=== PATIENT | male | born 1950 | race Two or more races ===

== ENCOUNTER 2019-02-03 12:50 | Inpatient (IN) | payer OTHER ==
[2019-02-03] MEDS ORDERED: ACETAMINOPHEN 1000 MG/100 ML VIAL (NON FORMULARY) IVPB ONE (13:49)
[2019-02-03] MEDS ORDERED: CLINDAMYCIN 600MG PREMIX IVPB 600 MG/50 ML BAG IVPB ONE ×2 (13:49→14:13)
--- NOTE | 2019-02-03 13:50 | PDOC ---
History of Present Illness <Gonzalez Stout - Last Filed: 02/03/19 15:36> - General History Source: Patient - History of Present Illness Occurred: reports: other Severity: Yes: severe Lower Extremity Pain Location: right: other (RLE leg/ankle) Method of Injury: Yes: fell <Adalgisa LathamHungLinette - Last Filed: 02/03/19 17:36> - General Chief Complaint: Edema Stated Complaint: RT LEG RASH Time Seen by Provider: 02/03/19 13:14 Past History <Gonzalez Stout - Last Filed: 02/03/19 15:36> - Past Medical History COPD: No Diabetes: Yes HTN: Yes - Psycho Social/Smoking Cessation Hx Smoking History: Never smoked Hx Alcohol Use: No Drug/Substance Use Hx: No <Adalgisa LathamHungLinette - Last Filed: 02/03/19 17:36> - Past Medical History Allergies/Adverse Reactions: Allergies Allergy/AdvReac Type Severity Reaction Status Date / Time No Known Allergies Allergy Verified 02/03/19 13:19 Home Medications: Ambulatory Orders Allopurinol [Zyloprim -] 100 mg PO DAILY 02/03/19 Aspirin [Aspirin EC] 81 mg PO DAILY 02/03/19 Atorvastatin Ca [Lipitor] 20 mg PO HS 02/03/19 Carvedilol 25 mg PO BID 02/03/19 Chlorthalidone 25 mg PO DAILY 02/03/19 Hydralazine HCl 50 mg PO TID 02/03/19 Insulin (Levemir) [Levemir Vial] 55 unit SQ DAILY 02/03/19 Losartan Potassium 100 mg PO DAILY 02/03/19 Review of Systems - Review of Systems Constitutional: No: Chills, Fever, Malaise, Weakness Respiratory: No: Cough, Shortness of Breath, Hemoptysis Cardiac (ROS): No: Chest Pain, Lightheadedness, Palpitations Integumentary: Yes: Erythema <Adalgisa LathamHungLinette - Last Filed: 02/03/19 17:36> *Physical Exam - Vital Signs Last Vital Signs Temp Pulse Resp BP Pulse Ox 97.8 F 65 16 130/53 L 95 02/03/19 13:15 02/03/19 13:15 02/03/19 13:15 02/03/19 13:15 02/03/19 13:15 <Gonzalez Stout - Last Filed: 02/03/19 15:36> - Vital Signs Last Vital Signs Temp Pulse Resp BP Pulse Ox 97.8 F 65 16 130/53 L 95 02/03/19 13:15 02/03/19 13:15 02/03/19 13:15 02/03/19 13:15 02/03/19 13:15 - Physical Exam General Appearance: Yes: Appropriately Dressed. No: Apparent Distress HEENT: positive: Normal Voice Neck: positive: Supple Respiratory/Chest: positive: Lungs Clear, Normal Breath Sounds. negative: Respiratory Distress Cardiovascular: positive: Regular Rate, S1, S2 Integumentary: positive: Dry, Warm, Other (diffuse edema w/ extensive erythema and increased warmth to RLE, superficial abrasion to anterior knee w/ limited erythema, unable to palpate pulses 2/2 swelling) Neurologic: positive: Fully Oriented, Alert, Normal Mood/Affect <Teetee Latham - Last Filed: 02/03/19 17:36> Heart Score/ECG Review #1 ECG reviewed & interpreted by me at: 14:46 General ECG Interpretation: Sinus Rhythm, Normal Rate (64), Normal Intervals ( qtc 476), No acute ischemic changes <Gonzalez Stout - Last Filed: 02/03/19 15:36> ED Treatment Course - LABORATORY CBC & Chemistry Diagram: 02/03/19 14:05 02/03/19 13:55 - ADDITIONAL ORDERS Additional order review: Laboratory Results 02/03/19 13:55 Sodium 139 Potassium 4.4 Chloride 108 H Carbon Dioxide 25 Anion Gap 6 L BUN 34.9 H Creatinine 1.9 H Est GFR (CKD-EPI)AfAm 41.65 Est GFR (CKD-EPI)NonAf 35.94 Random Glucose 331 H Calcium 8.4 L Total Bilirubin 0.6 AST 49 H ALT 21 Alkaline Phosphatase 86 Total Protein 6.2 L Albumin 3.0 L 02/03/19 14:05 RBC 3.97 L MCV 91.6 MCHC 32.8 RDW 14.6 MPV 10.2 Neutrophils % 68.5 Lymphocytes % 20.6 Monocytes % 7.2 Eosinophils % 2.9 Basophils % 0.8 - Medications Given in the ED: ED Medications Discontinued Medications Generic Name Dose Route Start Last Admin Trade Name Freq PRN Reason Stop Dose Admin Acetaminophen 1,000 mg 02/03/19 13:49 02/03/19 14:32 Ofirmev Injection - IVPB 02/03/19 13:50 1,000 mg ONCE ONE Administration Clindamycin Phosphate 600 mg in 50 mls @ 100 mls/hr 02/03/19 13:49 02/03/19 14:32 Cleocin 600 Mg Premix Ivpb - IVPB 02/03/19 14:18 100 mls/hr ONCE ONE Administration <Gonzalez Stout - Last Filed: 02/03/19 15:36> - LABORATORY CBC & Chemistry Diagram: 02/03/19 14:05 02/03/19 13:55 <Teetee Latham - Last Filed: 02/03/19 17:36> Medical Decision Making - Medical Decision Making 02/03/19 14:01 68-year-old male, history of hypertension and insulin-dependent diabetic here with right lower leg pain swelling and redness x 3 days. Patient states he fell onto right knee 1 week ago during which he sustained an abrasion and has been applying bacitracin. Denies any fever or chills. FS 98 this am. HA1c 8 per pt See exam Extensive RLE cellulitis, m/l 2/2 abrasion during knee injury last week No systemic s/s -pain control -IV abx -labs -XR -US though very low suspicion for DVT -admit 02/03/19 15:55 Labs remarkable for creatinine of 1.9, no old to compare. Patient states he was told in the past that his kidney tests were a little elevated but does not know numbers. Blood glucose 331 with no gap. IV fluids, abx and US in progress. XR neg for fx. Pending admission <Teetee Latham - Last Filed: 02/03/19 17:36> Discharge <Gonzalez Stout - Last Filed: 02/03/19 15:36> - Discharge Information Problems reviewed: Yes - Admission Yes <Teetee Latham - Last Filed: 02/03/19 17:36> - Discharge Information Clinical Impression/Diagnosis: Cellulitis of right leg, Hyperglycemia Condition: Fair - Follow up/Referral Referrals: Zafar Eckert MD [Primary Care Provider] -
[2019-02-03] MEDS ORDERED: ACETAMINOPHEN INJECTION 100 ML IVPB ONE (14:15)
[2019-02-03 14:28] LABS: BASO % 0.8 % (0-2.0); EOS % 2.9 % (0-4.5); HEMATOCRIT 36.4 % (35.4-49); HEMOGLOBIN 11.9 GM/dL (11.7-16.9); LYMPH % 20.6 % (8-40); MCH 30.1 pg (25.7-33.7); MCHC 32.8 g/dl (32.0-35.9); MEAN CELL VOLUME 91.6 fl (80-96); MEAN PLT VOLUME 10.2 fl (7.5-11.1); MONO % 7.2 % (3.8-10.2); NEUT % 68.5 % (42.8-82.8); PLATELET COUNT 152 K/MM3 (134-434); RBC 3.97 M/mm3 (4.00-5.60); RDW 14.6 % (11.9-15.9); WHITE BLOOD COUNT 6.7 K/mm3 (4.0-10.0)
[2019-02-03 14:52] LABS: BILIRUBIN,TOTAL 0.6 mg/dL (0.2-1); BLOOD UREA NITROGEN 34.9 mg/dL (7-18); CALCIUM 8.4 mg/dL (8.5-10.1); CREATININE 1.9 mg/dL (0.55-1.3); POTASSIUM 4.4 mmol/L (3.5-5.1); TOT PROT 6.2 g/dl (6.4-8.2)
[2019-02-03 15:18] LABS: PLATELET ESTIMATE DECREASED
[2019-02-03] MEDS ORDERED: SODIUM CHLORIDE 1,000 ML IV STA (15:54)
--- NOTE | 2019-02-03 16:41 | HP ---
<Yifan Figueroa - Last Filed: 02/03/19 19:32> CHIEF COMPLAINT: Right knee pain/swelling PCP: Dr Eckert HISTORY OF PRESENT ILLNESS: Pt is a 68 y/o M with a significant past medical history of IDDM, HTN, CKD, who presented to [facility] due to right knee swelling and pain. Pt endorses that 1 week ago, he fell on his right knee. Shortly after the injury, pt noticed swelling and erythema around the area. Yesterday, pt said the redness traveled down from his knee to his soria. Pt has applied topic bacitracin to the area with little relief. Pt does endorse he is an insulin dependent diabetic. Denies any fever, chills, nausea, vomiting, chest pain, or shortness of breath PMH as above SocialHx- Denies T/A/D SurgHx- Cataract surgery FH- Mother DM ER course was notable for: (1) Venous Duplex Negative (2) Received Clindamycin Allergies No Known Allergies Allergy (Verified 02/03/19 13:19) HOME MEDICATIONS: Home Medications Medication Instructions Recorded Allopurinol [Zyloprim -] 100 mg PO DAILY 02/03/19 Aspirin [Aspirin EC] 81 mg PO DAILY 02/03/19 Atorvastatin Ca [Lipitor] 20 mg PO HS 02/03/19 Carvedilol 25 mg PO BID 02/03/19 Chlorthalidone 25 mg PO DAILY 02/03/19 Hydralazine HCl 50 mg PO TID 02/03/19 Insulin (Levemir) [Levemir Vial] 55 unit SQ DAILY 02/03/19 Losartan Potassium 100 mg PO DAILY 02/03/19 REVIEW OF SYSTEMS CONSTITUTIONAL: Absent: fever, chills, diaphoresis, generalized weakness, malaise, loss of appetite, weight change HEENT: Absent: rhinorrhea, nasal congestion, throat pain, throat swelling, difficulty swallowing, mouth swelling, ear pain, eye pain, visual changes CARDIOVASCULAR: Absent: chest pain, syncope, palpitations, irregular heart rate, lightheadedness , peripheral edema RESPIRATORY: Absent: cough, shortness of breath, dyspnea with exertion, orthopnea, wheezing, stridor, hemoptysis GASTROINTESTINAL: Absent: abdominal pain, abdominal distension, nausea, vomiting, diarrhea, constipation, melena, hematochezia GENITOURINARY: Absent: dysuria, frequency, urgency, hesitancy, hematuria, flank pain, genital pain MUSCULOSKELETAL: Absent: myalgia, arthralgia, joint swelling, back pain, neck pain SKIN: PRESENT rash right lower extremity HEMATOLOGIC/IMMUNOLOGIC: Absent: easy bleeding, easy bruising, lymphadenopathy, frequent infections ENDOCRINE: Absent: unexplained weight gain, unexplained weight loss, heat intolerance, cold intolerance NEUROLOGIC: Absent: headache, focal weakness or paresthesias, dizziness, unsteady gait, seizure, mental status changes, bladder or bowel incontinence PSYCHIATRIC: Absent: anxiety, depression, suicidal or homicidal ideation, hallucinations. PHYSICAL EXAMINATION Vital Signs - 24 hr 02/03/19 13:15 Temperature 97.8 F Pulse Rate 65 Respiratory 16 Rate Blood Pressure 130/53 L O2 Sat by Pulse 95 Oximetry (%) GENERAL: Awake, alert, and fully oriented, in no acute distress. HEAD: Normal with no signs of trauma. EYES: EOMI Sclera Clear EARS, NOSE, THROAT: MMM LUNGS: CTA b/l HEART: RRR S1S2 ABDOMEN: Soft, NDNT MUSCULOSKELETAL: FROM LOWER EXTREMITIES: Faint pulses bilaterally. Erythema and swelling R Knee. Ecchymosis right soria NEUROLOGICAL: Cranial nerves II-XII intact. Normal speech. Normal gait. PSYCHIATRIC: Cooperative. Good eye contact. Appropriate mood and affect. SKIN: Warm, dry, normal turgor, no rashes or lesions noted, normal capillary refill. Laboratory Results - last 24 hr 02/03/19 02/03/19 13:55 14:05 WBC 6.7 RBC 3.97 L Hgb 11.9 Hct 36.4 MCV 91.6 MCH 30.1 MCHC 32.8 RDW 14.6 Plt Count 152 MPV 10.2 Absolute Neuts (auto) 4.6 Neutrophils % 68.5 Neutrophils % (Manual) 58.3 Band Neutrophils % 0.0 Lymphocytes % 20.6 Lymphocytes % (Manual) 10.4 Monocytes % 7.2 Monocytes % (Manual) 9 Eosinophils % 2.9 Eosinophils % (Manual) 1.1 Basophils % 0.8 Basophils % (Manual) 1.0 Myelocytes % (Man) 0 Promyelocytes % (Man) 0 Blast Cells % (Manual) 0 Nucleated RBC % 0 Metamyelocytes 0 Platelet Estimate Decreased Sodium 139 Potassium 4.4 Chloride 108 H Carbon Dioxide 25 Anion Gap 6 L BUN 34.9 H Creatinine 1.9 H Est GFR (CKD-EPI)AfAm 41.65 Est GFR (CKD-EPI)NonAf 35.94 Random Glucose 331 H Calcium 8.4 L Total Bilirubin 0.6 AST 49 H ALT 21 Alkaline Phosphatase 86 Total Protein 6.2 L Albumin 3.0 L ASSESSMENT/PLAN: Pt is a 68 y/o M with a significant past medical history of IDDM, HTN, CKD, who presented to [facility] due to right knee swelling and pain. # Cellulites 2/2 Mechanical injury -No WBC elevation -Received Clindamycin one time dose in ED -Will place on Vancomycin renally dosed in light of diabetes -ID Consult -CBC,CMP in am -Assess line of demarcation daily for spread of cellulitis -Arterial Duplex bilaterally to assess for adequate flow in light of diabetes -Urine NAATS as possible culprit for Septic joint # Uncontrolled ISSM -Will resume Levemir 55U HS -Will also cover with ISS - A1c in am. # CKD -Cr 1.9. Pt endorses this is his baseline. Will repeat CMP in am -Consider Renal Consult #HTN -Will hold Losartan in light of elevated Creatinine -Procardia if necessary as pt has pedel edema #FEN -No standing Fluids -Monitor Electrolytes -Diabetic Diet #Dispo: Med-Surg Visit type - Emergency Visit Emergency Visit: Yes ED Registration Date: 02/03/19 Care time: The patient presented to the Emergency Department on the above date and was hospitalized for further evaluation of their emergent condition. - New Patient This patient is new to me today: Yes Date on this admission: 02/03/19 - Critical Care Critical Care patient: No ATTENDING PHYSICIAN STATEMENT I saw and evaluated the patient. I reviewed the resident's note and discussed the case with the resident. I agree with the resident's findings and plan as documented. SUBJECTIVE: OBJECTIVE: ASSESSMENT AND PLAN: <Gentry Vidal - Last Filed: 02/04/19 01:55> Seen and examined; please see resident note for further information. Agree with above as documented aside from as supplemented by myself. Personally verified all bonilla historical details, PE findings, as well as all labs, imaging, and diagnostics. Discussed at length with resident and indicated consultants. 45 minutes spent on this admission. Cellulitic changes over knee with pain wiith AROM/PROM noted. No history gout/ pseudogout. Hemodynamics stable. No elevated WBC. No further subjective findings-agree with resident history. Pain worse with activity better with rest somewhat. Burning to sharp in nature and non-radicular. No other provider visits. 10 sys ROS done and negative aside from HPI NAD, AAO, resting in bed NC AT EOMI PERRLA HR wnl, s1/2+ Lungs CTAB, w/ sym exp NT ND +BS CN2-12 wnl, no fnd Normal mood, appropriate behavior, average insight Skin on knee warm with erythema Painful PROM 2/2 overlying cellulitic changes but difficult to fully differentiate Trachea midline, no JVD XR with ? foreign body? CT pending EKG pending Additonal labs pending Micro drawn and pending. A/P: Presents with suspected cellulitis; stable at the moment. Problems include: -Acute cellulitis of the LE over the knee, r/o septic arthritis (less likely( *ESR/CRP pending, trend CBC, FU clinical findings. Check chlamydia/ gonorrhea amplification. CT pending and if needed can check MRI but just want to see if any large effusions and long wait time for MRI No s/s nec fas. Check arterial US per IDSA guidelines given risk factors. Localized wound care. FU ID consult). -Uncontrolled DM (continue home basal and add SSI; monitor for hypoglycemic episodes) -CKD-IV (2/2 uncontrolled DM, HTN. Monitor and if acutely worsens Cr will consult nephrology) -Chronic LE swelling -Hx HTN -Likely HALIMA (sleep study ordered, pulm consult as OP) Full Code ATTENDING PHYSICIAN STATEMENT I saw and evaluated the patient. I reviewed the resident's note and discussed the case with the resident. I agree with the resident's findings and plan as documented. SUBJECTIVE: OBJECTIVE: ASSESSMENT AND PLAN:
--- NOTE | 2019-02-03 19:36 | EKG ---
Test Reason : Blood Pressure : / mmHG Vent. Rate : 064 BPM Atrial Rate : 064 BPM P-R Int : 194 ms QRS Dur : 088 ms QT Int : 462 ms P-R-T Axes : 061 062 062 degrees QTc Int : 476 ms NORMAL SINUS RHYTHM NORMAL ECG NO PREVIOUS ECGS AVAILABLE Confirmed by MD BART, SUPRIYA ([id number]) on 02/03/2019 7:36:38 PM Referred By: Confirmed By:SUPRIYA ARRIAGA MD
[2019-02-03] MEDS ORDERED: INSULIN SLIDING SCALE (NOVOLOG) 1 VIAL SQ SCH (22:00)
[2019-02-03] MEDS ORDERED: ATORVASTATIN CA 20 MG TABLET (FP) ONE (22:57)
[2019-02-03] MEDS: ATORVASTATIN CA 20 MG TABLET (FP) PO SCH (23:19)
[2019-02-03] MEDS: INSULIN (LEVEMIR) 100 UNITS/ML UNITS SQ SCH (23:19)
[2019-02-04] MEDS ORDERED: VANCOMYCIN HCL 1,250 MG in DEXTROSE 5%-WATER - 250 ML IVPB SCH (06:00)
[2019-02-04 07:25] LABS: BASO % 1.1 % (0-2.0); EOS % 2.7 % (0-4.5); HEMATOCRIT 35.1 % (35.4-49); HEMOGLOBIN 11.8 GM/dL (11.7-16.9); LYMPH % 17.4 % (8-40); MCH 30.7 pg (25.7-33.7); MCHC 33.6 g/dl (32.0-35.9); MEAN CELL VOLUME 91.5 fl (80-96); MEAN PLT VOLUME 9.8 fl (7.5-11.1); MONO % 8.7 % (3.8-10.2); NEUT % 70.1 % (42.8-82.8); PLATELET COUNT 139 K/MM3 (134-434); RBC 3.84 M/mm3 (4.00-5.60); RDW 14.5 % (11.9-15.9); WHITE BLOOD COUNT 8.2 K/mm3 (4.0-10.0)
[2019-02-04 07:41] LABS: INR 1.03 (0.83-1.09); PROTHROMBIN TIME (PATIENT) 12.1 SEC (9.7-13.0)
[2019-02-04 07:43] LABS: ACTIVATED PTT 28.7 SECONDS (25.2-36.5)
[2019-02-04 07:57] LABS: ALBUMIN 2.9 g/dl (3.4-5.0); BILIRUBIN,TOTAL 0.3 mg/dL (0.2-1); BLOOD UREA NITROGEN 32.2 mg/dL (7-18); CALCIUM 7.8 mg/dL (8.5-10.1); CREATININE 1.8 mg/dL (0.55-1.3); MAGNESIUM 2.1 mg/dL (1.8-2.4); PHOSPHOROUS 2.7 mg/dL (2.5-4.9); POTASSIUM 3.6 mmol/L (3.5-5.1); TOT PROT 5.9 g/dl (6.4-8.2)
[2019-02-04] MEDS: INSULIN SLIDING SCALE (NOVOLOG) 1 VIAL SQ SCH ×4 (09:02→21:43)
[2019-02-04] MEDS: ASPIRIN COATED 81 MG TABLET.EC PO SCH (10:36)
--- NOTE | 2019-02-04 11:04 | CON.ID ---
Consult Consult Specialty:: infectious disease Referred by:: hospitalist Reason for Consultation:: erythema of the RLE - History of Present Illness Chief Complaint: erythema and swelling RLE History of Present Illness: 68 yo man with DM since 1979 on insulin as outpt slipped and fell on cement last Saturday- he cleaned the wound with hydrogen peroxide and applied bacitracin 2 days ago he noted swelling and erythema of the lowe leg below the knee no fevers or chills did not seek attention from his PMD sugars have been controlled denies diabetic retinopathy, does note numbness in his legs, ?renal disease- not sure - History Source History Provided By: Patient Limitations to Obtaining History: No Limitations - Past Medical History Endocrine: Yes: Diabetes Mellitus - Past Surgical History Past Surgical History: Yes: Cataract Removal - Alcohol/Substance Use Hx Alcohol Use: No - Smoking History Smoking history: Never smoked - Social History Usual Living Arrangement: Alone ADL: Independent Occupation: retires, [employer] library worker Place of : [facility] History of Recent Travel: No Home Medications - Allergies Allergies/Adverse Reactions: Allergies Allergy/AdvReac Type Severity Reaction Status Date / Time No Known Allergies Allergy Verified 02/03/19 13:19 - Home Medications Home Medications: Ambulatory Orders Allopurinol [Zyloprim -] 100 mg PO DAILY 02/03/19 Aspirin [Aspirin EC] 81 mg PO DAILY 02/03/19 Atorvastatin Ca [Lipitor] 20 mg PO HS 02/03/19 Carvedilol 25 mg PO BID 02/03/19 Chlorthalidone 25 mg PO DAILY 02/03/19 Hydralazine HCl 50 mg PO TID 02/03/19 Insulin (Levemir) [Levemir Vial] 55 unit SQ DAILY 02/03/19 Losartan Potassium 100 mg PO DAILY 02/03/19 Family Medical History Family Hx Diabetes: Mother Review of Systems - Review of Systems Constitutional: reports: No Symptoms. denies: Chills, Fever Eyes: reports: No Symptoms HENT: reports: No Symptoms Neck: reports: No Symptoms Cardiovascular: reports: No Symptoms Respiratory: reports: No Symptoms Gastrointestinal: reports: No Symptoms Genitourinary: reports: No Symptoms Breasts: reports: No Symptoms Reported Musculoskeletal: reports: No Symptoms Integumentary: reports: No Symptoms Neurological: reports: No Symptoms Physical Exam Vital Signs: Vital Signs Temperature 97.6 F 02/03/19 17:19 Pulse Rate 60 02/04/19 06:59 Respiratory Rate 18 02/04/19 06:59 Blood Pressure 155/69 02/04/19 06:59 O2 Sat by Pulse Oximetry (%) 98 02/04/19 06:59 Constitutional: Yes: Well Nourished, No Distress, Calm Eyes: Yes: Conjunctiva Clear HENT: Yes: Atraumatic, Normocephalic Neck: Yes: Supple Cardiovascular: Yes: Regular Rate and Rhythm Respiratory: Yes: Regular, CTA Bilaterally Gastrointestinal: Yes: Normal Bowel Sounds, Soft Extremities: Yes: Other (scab on right knee- FROM of the kneed erythema and edema of the RLE - marked by a pen , nontender, no fluctuance macular appearing) Neurological: Yes: Alert, Oriented Labs: CBC, BMP 02/04/19 06:04 02/04/19 06:04 Imaging - Results Chest X-ray: Report Reviewed, Image Reviewed X-ray: Report Reviewed Cat Scan: Report Reviewed Problem List - Problems (1) Cellulitis of right leg Code(s): L03.115 - CELLULITIS OF RIGHT LOWER LIMB (2) Diabetes Code(s): E11.9 - TYPE 2 DIABETES MELLITUS WITHOUT COMPLICATIONS (3) Renal insufficiency Code(s): N28.9 - DISORDER OF KIDNEY AND URETER, UNSPECIFIED Assessment/Plan suggest cefazollin nothing to suggest MRSA infection- no abscess, not toxic, no prior hospitalizations or recent antibiotics
--- NOTE | 2019-02-04 11:23 | CONSULT ---
Consult Consult Specialty:: Nephrology Reason for Consultation:: CKD - History of Present Illness Chief Complaint: right leg erythema and pain History of Present Illness: Pt is a 68 year old male with pmhx of DM, HTN, and CKD who presents to the ER with right leg erythema and pain. 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 He says that he has CKD. He used to follow with a doctor in the [place] and says that his baseline was 1.9. He says that the CKD was attributed to DM. He denies dysuria or hematuria. He denies shortness of breath. - History Source History Provided By: Patient, Medical Record - Past Medical History Cardio/Vascular: Yes: HTN Renal/: Yes: Renal Inusuff Endocrine: Yes: Diabetes Mellitus - Past Surgical History Past Surgical History: Yes: Cataract Removal - Alcohol/Substance Use Hx Alcohol Use: No - Smoking History Smoking history: Never smoked - Social History Usual Living Arrangement: Alone ADL: Independent Occupation: retires, [employer] library worker History of Recent Travel: No Home Medications - Allergies Allergies/Adverse Reactions: Allergies Allergy/AdvReac Type Severity Reaction Status Date / Time No Known Allergies Allergy Verified 02/03/19 13:19 - Home Medications Home Medications: Ambulatory Orders Allopurinol [Zyloprim -] 100 mg PO DAILY 02/03/19 Aspirin [Aspirin EC] 81 mg PO DAILY 02/03/19 Atorvastatin Ca [Lipitor] 20 mg PO HS 02/03/19 Carvedilol 25 mg PO BID 02/03/19 Chlorthalidone 25 mg PO DAILY 02/03/19 Hydralazine HCl 50 mg PO TID 02/03/19 Insulin (Levemir) [Levemir Vial] 55 unit SQ DAILY 02/03/19 Losartan Potassium 100 mg PO DAILY 02/03/19 Family Medical History Family History: Denies Review of Systems - Review of Systems Constitutional: reports: Malaise Eyes: reports: No Symptoms HENT: reports: No Symptoms Neck: reports: No Symptoms Cardiovascular: reports: No Symptoms Respiratory: reports: No Symptoms Gastrointestinal: reports: No Symptoms Genitourinary: reports: No Symptoms Musculoskeletal: reports: Other (right leg pain) Integumentary: reports: Erythema Physical Exam Vital Signs: Vital Signs Temperature 97.6 F 02/03/19 17:19 Pulse Rate 60 02/04/19 06:59 Respiratory Rate 18 02/04/19 06:59 Blood Pressure 155/69 02/04/19 06:59 O2 Sat by Pulse Oximetry (%) 98 02/04/19 06:59 Constitutional: Yes: Calm Eyes: Yes: Conjunctiva Clear HENT: Yes: Atraumatic Cardiovascular: Yes: S1, S2 Respiratory: Yes: CTA Bilaterally Gastrointestinal: Yes: Soft Renal/: Yes: WNL Musculoskeletal: Yes: WNL Edema: Yes Edema: LLE: 1+, RLE: 1+ Integumentary: Yes: Erythema Neurological: Yes: Oriented Psychiatric: Yes: Oriented Labs: CBC, BMP 02/04/19 06:04 02/04/19 06:04 Imaging - Results Chest X-ray: Report Reviewed Problem List - Problems (1) Cellulitis of right leg Code(s): L03.115 - CELLULITIS OF RIGHT LOWER LIMB (2) Diabetes Code(s): E11.9 - TYPE 2 DIABETES MELLITUS WITHOUT COMPLICATIONS (3) Hyperglycemia Code(s): R73.9 - HYPERGLYCEMIA, UNSPECIFIED (4) Renal insufficiency Code(s): N28.9 - DISORDER OF KIDNEY AND URETER, UNSPECIFIED Assessment/Plan Current Medications Generic Name Dose Route Start Last Admin Trade Name Freq PRN Reason Stop Dose Admin Aspirin 81 mg 02/04/19 10:00 02/04/19 10:36 Ecotrin - PO 81 mg DAILY KASSIE Administration Atorvastatin Calcium 20 mg 02/03/19 22:00 02/03/19 23:19 Lipitor - PO 20 mg HS KASSIE Administration Cefazolin Sodium 1 gm/ 50 mls @ 100 mls/hr 02/04/19 18:00 Dextrose IVPB Q8H-IV KASSIE Insulin Aspart 1 vial 02/04/19 06:00 02/04/19 09:02 Novolog Vial Sliding Scale - SQ 2 units ACHS KASSIE Administration Protocol Insulin Detemir 55 units 02/03/19 22:00 02/03/19 23:19 Levemir Vial SQ 55 unit HS KASSIE Administration Impression 1. CKD 2. HTN 3. DM 4. 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
[2019-02-04 11:40] LABS: ANISOCYTOSIS 0; MACROCYTOSIS 0; PLATELET ESTIMATE DECREASED
--- NOTE | 2019-02-04 12:39 | PN ---
Physical Exam: SUBJECTIVE: Patient seen and examined; no new complaints. Pain and presenting symptoms somewhat improved. Continues on abx; ID pending. Stable VS. afebrile and no tachycardia noted. No DVT. Negative CT for acute infection or knee effusion but the patient does have symmetric subcutaneous edema as seen on exam. 10 sys ROS done and negative aside from HPI OBJECTIVE: Vital Signs Period Temp Pulse Resp BP Sys/Bell Pulse Ox Last 24 Hr 97.6 F-97.8 F 56-65 16-18 130-155/53-69 95-98 NAD, AAO, resting in bed NC AT EOMI PERRLA HR wnl, s1/2+ Lungs CTAB, w/ sym exp NT ND +BS CN2-12 wnl, no fnd Normal mood, appropriate behavior, average insight Skin on knee warm with erythema Painful PROM 2/2 overlying cellulitic changes but difficult to fully differentiate. Slightly improved from prior enocounter. Trachea midline, no JVD Laboratory Results - last 24 hr 02/03/19 02/03/19 02/03/19 13:55 14:05 23:05 WBC 6.7 RBC 3.97 L Hgb 11.9 Hct 36.4 MCV 91.6 MCH 30.1 MCHC 32.8 RDW 14.6 Plt Count 152 MPV 10.2 Absolute Neuts (auto) 4.6 Neutrophils % 68.5 Neutrophils % (Manual) 58.3 Band Neutrophils % 0.0 Lymphocytes % 20.6 Lymphocytes % (Manual) 10.4 Monocytes % 7.2 Monocytes % (Manual) 9 Eosinophils % 2.9 Eosinophils % (Manual) 1.1 Basophils % 0.8 Basophils % (Manual) 1.0 Myelocytes % (Man) 0 Promyelocytes % (Man) 0 Blast Cells % (Manual) 0 Nucleated RBC % 0 Metamyelocytes 0 Hypochromia Platelet Estimate Decreased Polychromasia Poikilocytosis Anisocytosis Microcytosis Macrocytosis PT with INR INR PTT (Actin FS) Sodium 139 Potassium 4.4 Chloride 108 H Carbon Dioxide 25 Anion Gap 6 L BUN 34.9 H Creatinine 1.9 H Est GFR (CKD-EPI)AfAm 41.65 Est GFR (CKD-EPI)NonAf 35.94 POC Glucometer 277 Random Glucose 331 H Calcium 8.4 L Phosphorus Magnesium Total Bilirubin 0.6 AST 49 H ALT 21 Alkaline Phosphatase 86 Total Protein 6.2 L Albumin 3.0 L 02/04/19 02/04/19 02/04/19 06:04 06:04 06:04 WBC 8.2 RBC 3.84 L Hgb 11.8 Hct 35.1 L MCV 91.5 MCH 30.7 MCHC 33.6 RDW 14.5 Plt Count 139 MPV 9.8 Absolute Neuts (auto) 5.7 Neutrophils % 70.1 Neutrophils % (Manual) 61.2 Band Neutrophils % 0.0 Lymphocytes % 17.4 Lymphocytes % (Manual) 16.3 D Monocytes % 8.7 Monocytes % (Manual) 8 Eosinophils % 2.7 Eosinophils % (Manual) 1.0 Basophils % 1.1 Basophils % (Manual) 2.1 H Myelocytes % (Man) 4 H D Promyelocytes % (Man) 0 Blast Cells % (Manual) 0 Nucleated RBC % 0 Metamyelocytes 2 D Hypochromia 0 Platelet Estimate Decreased Polychromasia 0 Poikilocytosis 0 Anisocytosis 0 Microcytosis 0 Macrocytosis 0 PT with INR 12.10 INR 1.03 PTT (Actin FS) 28.7 Sodium 141 Potassium 3.6 Chloride 110 H Carbon Dioxide 28 Anion Gap 4 L BUN 32.2 H Creatinine 1.8 H Est GFR (CKD-EPI)AfAm 44.46 Est GFR (CKD-EPI)NonAf 38.36 POC Glucometer Random Glucose 163 H Calcium 7.8 L Phosphorus 2.7 Magnesium 2.1 Total Bilirubin 0.3 AST 29 ALT 19 Alkaline Phosphatase 72 Total Protein 5.9 L Albumin 2.9 L 02/04/19 02/04/19 07:08 11:12 WBC RBC Hgb Hct MCV MCH MCHC RDW Plt Count MPV Absolute Neuts (auto) Neutrophils % Neutrophils % (Manual) Band Neutrophils % Lymphocytes % Lymphocytes % (Manual) Monocytes % Monocytes % (Manual) Eosinophils % Eosinophils % (Manual) Basophils % Basophils % (Manual) Myelocytes % (Man) Promyelocytes % (Man) Blast Cells % (Manual) Nucleated RBC % Metamyelocytes Hypochromia Platelet Estimate Polychromasia Poikilocytosis Anisocytosis Microcytosis Macrocytosis PT with INR INR PTT (Actin FS) Sodium Potassium Chloride Carbon Dioxide Anion Gap BUN Creatinine Est GFR (CKD-EPI)AfAm Est GFR (CKD-EPI)NonAf POC Glucometer 166 184 Random Glucose Calcium Phosphorus Magnesium Total Bilirubin AST ALT Alkaline Phosphatase Total Protein Albumin Active Medications Generic Name Dose Route Start Last Admin Trade Name [place] PRN Reason Stop Dose Admin Aspirin 81 mg 02/04/19 10:00 02/04/19 10:36 Ecotrin - PO 81 mg DAILY KASSIE Administration Atorvastatin Calcium 20 mg 02/03/19 22:00 02/03/19 23:19 Lipitor - PO 20 mg HS KASSIE Administration Cefazolin Sodium 1 gm/ 50 mls @ 100 mls/hr 02/04/19 18:00 Dextrose IVPB Q8H-IV KASSIE Insulin Aspart 1 vial 02/04/19 06:00 02/04/19 09:02 Novolog Vial Sliding Scale - SQ 2 units ACHS KASSIE Administration Protocol Insulin Detemir 55 units 02/03/19 22:00 02/03/19 23:19 Levemir Vial SQ 55 unit HS KASSIE Administration ASSESSMENT/PLAN: Presents with suspected cellulitis; stable at the moment afebrile without white count. Negative CT for acute infection. Problems include: -Acute cellulitis of the LE over the knee, r/o septic arthritis (less likely( *ESR/CRP pending, trend CBC, FU clinical findings. Check chlamydia/ gonorrhea amplification. CT pending and if needed can check MRI but just want to see if any large effusions and long wait time for MRI No s/s nec fas. Check arterial US per IDSA guidelines given risk factors. Localized wound care. FU ID consult). -Uncontrolled DM (continue home basal and add SSI; monitor for hypoglycemic episodes) -CKD-IV (2/2 uncontrolled DM, HTN. Monitor and if acutely worsens Cr will consult nephrology) -Chronic LE swelling -Hx HTN -Likely HALIMA (sleep study ordered, pulm consult as OP) Today the patient was noted to be clinically improved with receding margins on the cellulitis. Infectious disease saw and recommends continuing IV antibiotics. No signs of septic arthritis. Continue to monitor. Full Code Visit type - Emergency Visit Emergency Visit: No - New Patient This patient is new to me today: No - Critical Care Critical Care patient: No
[2019-02-04 13:33] LABS: N-TERMINAL BNP 1514.6 pg/ml (5-125)
--- NOTE | 2019-02-04 16:34 | ECHO ---
Name: VICKI WARDWIN Exam:Adult Echocardiogram Study Date: 02/04/2019 02:59 PM Age: 68 yrs Height: 67 in Weight: 197 lb BSA: 2.0 m2 MMode/2D Measurements & Calculations IVSd: 0.73 cm Ao root diam: 2.3 cm LVIDd: 5.2 cm LA dimension: 4.4 cm LVIDs: 3.1 cm ACS: 1.7 cm LVPWd: 1.1 cm IVSs: 1.1 cm LVPWs: 1.4 cm EDV(Teich): 129.9 ml ESV(Teich): 38.4 ml Doppler Measurements & Calculations MV E max jj: 108.8 cm/sec Ao V2 max: 122.2 cm/sec MV A max jj: 78.2 cm/sec Ao max P.0 mmHg MV E/A: 1.4 Ao V2 mean: 80.9 cm/sec Ao mean P.1 mmHg Ao V2 VTI: 24.8 cm Med Peak E' Jj: 5.8 cm/sec Med E/e': 18.9 Lat Peak E' Jj: 4.7 cm/sec Lat E/e': 23.3 Procedure A two-dimensional transthoracic echocardiogram with color flow and Doppler was performed. The study w as technically difficult with many images being suboptimal in quality. Left Ventricle The left ventricular size, thickness and function are normal. The left ventricle is not well visualiz ed. The left ventricular ejection fraction is normal. Regional wall motion abnormalities cannot be excluded d ue to limited visualization. Right Ventricle The right ventricle is not well visualized. Atria The left atrium is moderately dilated. The right atrium is moderately dilated. Mitral Valve There is mild mitral valve thickening. There is no mitral valve stenosis. There is trace to mild mitr al regurgitation. Tricuspid Valve There is mild tricuspid valve thickening. There is no tricuspid stenosis. There was insufficient TR d etected to calculate RV systolic pressure. Aortic Valve The aortic valve is not well visualized. No hemodynamically significant valvular aortic stenosis. No aortic regurgitation is present. Pulmonic Valve The pulmonic valve is not well visualized. Great Vessels The aortic root is normal size. Pericardium/Pleura There is no pericardial effusion. Interpretation Summary The left ventricular size, thickness and function are normal The left ventricular ejection fraction is normal. The study was technically difficult with many images being suboptimal in quality. The left ventricle is not well visualized. Regional wall motion abnormalities cannot be excluded due to limited visualization. The right ventricle is not well visualized. The left atrium is moderately dilated. The right atrium is moderately dilated. There is trace to mild mitral regurgitation. There was insufficient TR detected to calculate RV systolic pressure. MD Kiel Lua 02/04/2019 04:34 PM
[2019-02-04 19:26] LABS: EPI CELLS 0.9 /HPF (0-5/HPF); HYALINE CASTS 1 /lpf (0-8); URINE APPEARANCE CLEAR; URINE BACTERIA 0.7 /hpf (NEGATIVE); URINE BILIRUBIN NEGATIVE (NEGATIVE); URINE COLOR YELLOW; URINE GLUCOSE (UA) TRACE (NEGATIVE); URINE KETONE NEGATIVE (NEGATIVE); URINE LEUK ESTERASE NEGATIVE (NEGATIVE); URINE NITRITE NEGATIVE (NEGATIVE); URINE PROTEIN 3+ (NEGATIVE); URINE RBC 1 /hpf (0-4); URINE WBC 0 /hpf (0-5)
[2019-02-04 20:34] VITALS: BMI 32.8
[2019-02-04] MEDS ORDERED: INSULIN (NOVOLOG) ASPART 100 UNITS/ML 10ML VIAL ONE (21:31)
[2019-02-04] MEDS: INSULIN (LEVEMIR) 100 UNITS/ML UNITS SQ SCH (21:42)
[2019-02-04] MEDS: ATORVASTATIN CA 20 MG TABLET (FP) PO SCH (21:42)
[2019-02-05] MEDS ORDERED: ceFAZolin SODIUM 1 GM VIAL ONE ×3 (02:23→13:14)
[2019-02-05] MEDS ORDERED: DEXTROSE 5%-WATER - 50 ML IVPB ONE ×3 (02:24→13:14)
[2019-02-05] MEDS: CEFAZOLIN 1 GM in DEXTROSE 5%-WATER - 50 ML IVPB SCH ×3 (02:30→20:00)
[2019-02-05] MEDS ORDERED: VANCOMYCIN HCL 1,250 MG in DEXTROSE 5%-WATER - 250 ML IVPB SCH (06:15)
[2019-02-05] MEDS: INSULIN SLIDING SCALE (NOVOLOG) 1 VIAL SQ SCH ×4 (06:34→22:24)
--- NOTE | 2019-02-05 08:00 | PN ---
Progress Note (short form) - Note Progress Note: no complaints leg still swollen Vital Signs Period Temp Pulse Resp BP Sys/Bell Pulse Ox Last 24 Hr 96.7 F-98.0 F 56-62 20-20 122-161/60-80 98 cor-rrr lungs clear abd soft,nt ext still with swelling of the RLE, less erythema CBC, BMP 02/04/19 06:04 02/04/19 06:04 no new labs today a/p cellulitis- erythema improving-continue cefazolin still swollen- elevate leg, consider cade wrap DM- per primary team Problem List - Problems (1) Cellulitis of right leg Code(s): L03.115 - CELLULITIS OF RIGHT LOWER LIMB (2) Diabetes Code(s): E11.9 - TYPE 2 DIABETES MELLITUS WITHOUT COMPLICATIONS (3) Renal insufficiency Code(s): N28.9 - DISORDER OF KIDNEY AND URETER, UNSPECIFIED
[2019-02-05] MEDS: ASPIRIN COATED 81 MG TABLET.EC PO SCH ×2 (08:47→09:05)
[2019-02-05 09:36] LABS: ALBUMIN 3.1 g/dl (3.4-5.0); BILIRUBIN,TOTAL 0.4 mg/dL (0.2-1); BLOOD UREA NITROGEN 31.9 mg/dL (7-18); CALCIUM 8.4 mg/dL (8.5-10.1); CREATININE 1.7 mg/dL (0.55-1.3); POTASSIUM 3.8 mmol/L (3.5-5.1); TOT PROT 6.5 g/dl (6.4-8.2)
[2019-02-05] MEDS ORDERED: CARVEDILOL 25 MG TABLET (FP) PO SCH (10:15)
--- NOTE | 2019-02-05 11:23 | PN ---
Progress Note (short form) - Note Progress Note: Hospitalist Medicine Sitting up, eating breakfast. Improved erythema and edema on RLE Vitals 02/05/19 09:07 Temperature 98 F Pulse Rate 95 H Respiratory 20 Rate Blood Pressure 157/75 Physical Examination general: resting comfortably, sitting up eating breakfast HEENT: NCAT, PERRLA neck: supple cardio: S1, S2, RRR. no r/m/g pulm: CTA b/l. no accessory m usage abdomen: +obese, nontender, nondistended LE: 2+ pulses, no edema Laboratory Tests 02/05/19 02/05/19 08:16 08:16 ESR 50 H Sodium 144 Potassium 3.8 Chloride 109 H Anion Gap 8 BUN 31.9 H Creatinine 1.7 H Random Glucose 58 L C-Reactive Protein 0.6 H Imaging 02/03 CXR: some linear scarring or atelectasis at the left base. no acute changes 02/03 knee XR: no sign of fracture or subluxation amd no sign of blastic or lytic changes. there are vascular calcifications. there may b e atiny loose body. an exostosis off of the medial proximal tibia is noted 02/04 CT LE: no evidence of fracture, dislocation, joint effusion or acute bone or joint abnormalities, edematous changes within the subcutaneous tissues aobut both knees and proximal calves, R>>L Assessment/Plan 68 y/o M with a significant past medical history of IDDM, HTN, CKD, who presented to [facility] due to right knee swelling and pain. #RLE cellulitis 2/2 mechanical injury -c/w cefazolin (Day 2) -elevation ESR. CRP WNL -c/w BGM tight control, to aid in wound healing -f/u gonorrhea/chlymidia testing - pending. less likely reactive/septic jt -f/u art duplex -ID on board: Dr. Beatty #IDDM -c/w levemir 55u sq d -BGM, ISS ACHS #HTN -will hold other anti-HTN for now -on coreg, hydralazine, chlorthalidone, losartan at home -will restart losartan per nephro recs. 1/2 dose, 50mg qd (on 100mg at home) #HLD -c/w lipitor #gout -c/w allopurinol #F/E/N no need for IVF at this time continue to follow lytes diabetic diet #PPX DVT: hep 5k SQ tid #Dispo cont'd monitoring on med-surg; improved erythema on IV abx <Silvia Hopkins - Last Filed: 02/05/19 13:14> - Note Progress Note: Seen and examined; please see resident note for further historical information. I personally verified all bonilla historical information and exam findings. Personally interpreted all imaging and diagnostics and reviewed appropriate consults. I reviewed all labs and vital signs as per resident note and EMR as documented. I agree with the above assessment and plan unless supplemented by myself in the following. No acute events overnight, restarting arbor at half dose given improvement in creatinine and renal recommendation. Would like pressures ideally a guideline based recommendations but anything under 160 is appropriate for an inpatient without an acute issue regarding the blood pressure. Infectious disease recommended keeping the patient inpatient continue IV antibiotics. No fever, no white count. Follow-up ESR and CRP in the morning. VS, labs, imaging reviewed NAD, AAO, resting comfortably in bed. RRR s1/2 no mgr Normal muscle tone, moves all 5 extremities with normal apparent strength Neck is supple, trachea midline, no vance LN Lungs CTAB with sym expansion NT ND +BS no vance organomegaly CN2-12 wnl; no FND NC AT EOMI PERRLA Normal mood, appropriate behavior, euthymic affect No skin breakdown or rashes noted; cellulitic region is good and no effusion with knee exam. A/P: Presents with suspected cellulitis; stable at the moment afebrile without white count. Negative CT for acute infection. Problems include: -Acute cellulitis of the LE over the knee, r/o septic arthritis (less likely( *ESR/CRP pending, trend CBC, FU clinical findings. Check chlamydia/ gonorrhea amplification. CT pending and if needed can check MRI but just want to see if any large effusions and long wait time for MRI No s/s nec fas. Check arterial US per IDSA guidelines given risk factors. Localized wound care. FU ID consult). -Uncontrolled DM (continue home basal and add SSI; monitor for hypoglycemic episodes) -CKD-IV (2/2 uncontrolled DM, HTN. Monitor and if acutely worsens Cr will consult nephrology) -Chronic LE swelling -Hx HTN -Likely HALIMA (sleep study ordered, pulm consult as OP) Full Code <Gentry Vidal - Last Filed: 02/05/19 13:42>
[2019-02-05] MEDS: LOSARTAN POTASSIUM 50 MG TABLET (FP) PO SCH (12:55)
[2019-02-05] MEDS: HEPARIN NA (PORCINE) 5,000 UNITS/ML 1ML VIAL SQ SCH ×2 (13:19→22:23)
[2019-02-05] MEDS ORDERED: hydrALAZINE HCL 50 MG TABLET (FP) PO SCH (14:00)
--- NOTE | 2019-02-05 17:31 | PN ---
Progress Note, Physician History of Present Illness: Pt seen and examined at bedside. He is awake and alert. He denies shortness of breath. - Current Medication List Current Medications: Active Medications Allopurinol (Zyloprim -) 100 mg PO DAILY [facility] Aspirin (Ecotrin -) 81 mg PO DAILY [facility] Last Admin: 02/05/19 09:05 Dose: Not Given Atorvastatin Calcium (Lipitor -) 20 mg PO HS [facility] Last Admin: 02/04/19 21:42 Dose: 20 mg Heparin Sodium (Porcine) (Heparin -) 5,000 unit SQ TID [facility] Last Admin: 02/05/19 13:19 Dose: 5,000 unit Cefazolin Sodium 1 gm/ (Dextrose) 50 mls @ 100 mls/hr IVPB Q8H-IV KASSIE Last Admin: 02/05/19 09:05 Dose: 100 mls/hr Insulin Aspart (Novolog Vial Sliding Scale -) 1 vial SQ ACHS [facility]; Protocol Last Admin: 02/05/19 16:07 Dose: 2 units Insulin Detemir (Levemir Vial) 55 units SQ HS [facility] Last Admin: 02/04/19 21:42 Dose: 55 unit Losartan Potassium (Cozaar -) 50 mg PO DAILY [facility] Last Admin: 02/05/19 12:55 Dose: 50 mg - Objective Vital Signs: Vital Signs Temperature 98.0 F 02/05/19 13:47 Pulse Rate 60 02/05/19 13:47 Respiratory Rate 20 02/05/19 13:47 Blood Pressure 157/75 02/05/19 13:47 O2 Sat by Pulse Oximetry (%) 100 02/05/19 11:00 Constitutional: Yes: Calm Eyes: Yes: Conjunctiva Clear HENT: Yes: Atraumatic Neck: Yes: Supple Cardiovascular: Yes: S1, S2 Respiratory: Yes: CTA Bilaterally Gastrointestinal: Yes: Soft Genitourinary: Yes: WNL Musculoskeletal: Yes: WNL Edema: Yes Integumentary: Yes: Erythema Neurological: Yes: Oriented Psychiatric: Yes: Oriented Labs: CBC, BMP 02/04/19 06:04 02/05/19 08:16 INR, PTT INR 1.03 (0.83-1.09) 02/04/19 06:04 Problem List - Problems (1) Cellulitis of right leg Code(s): L03.115 - CELLULITIS OF RIGHT LOWER LIMB (2) Diabetes Code(s): E11.9 - TYPE 2 DIABETES MELLITUS WITHOUT COMPLICATIONS (3) Hyperglycemia Code(s): R73.9 - HYPERGLYCEMIA, UNSPECIFIED (4) Renal insufficiency Code(s): N28.9 - DISORDER OF KIDNEY AND URETER, UNSPECIFIED Assessment/Plan Current Medications Generic Name Dose Route Start Last Admin Trade Name Freq PRN Reason Stop Dose Admin Allopurinol 100 mg 02/06/19 10:00 Zyloprim - PO DAILY KASSIE Aspirin 81 mg 02/04/19 10:00 02/05/19 09:05 Ecotrin - PO Not Given DAILY KASSIE Atorvastatin Calcium 20 mg 02/03/19 22:00 02/04/19 21:42 Lipitor - PO 20 mg HS KASSIE Administration Heparin Sodium (Porcine) 5,000 unit 02/05/19 14:00 02/05/19 13:19 Heparin - SQ 5,000 unit TID KASSIE Administration Cefazolin Sodium 1 gm/ 50 mls @ 100 mls/hr 02/04/19 18:00 02/05/19 09:05 Dextrose IVPB 100 mls/hr Q8H-IV KASSIE Administration Insulin Aspart 1 vial 02/04/19 06:00 02/05/19 16:07 Novolog Vial Sliding Scale - SQ 2 units ACHS KASSIE Administration Protocol Insulin Detemir 55 units 02/03/19 22:00 02/04/19 21:42 Levemir Vial SQ 55 unit HS KASSIE Administration Losartan Potassium 50 mg 02/05/19 11:45 02/05/19 12:55 Cozaar - PO 50 mg DAILY KASSIE Administration Impression 1. CKD 2. HTN 3. DM 4. cellultiis Plan - renal function stable - cont losartan - ua reviewed - arb should help with proteinuria - renal dose meds - avoid nephrotoxins
[2019-02-05] MEDS ORDERED: INSULIN (LEVEMIR) 100 UNITS/ML UNITS SQ ONE (22:00)
[2019-02-05] MEDS: ATORVASTATIN CA 20 MG TABLET (FP) PO SCH (22:24)
[2019-02-05] MEDS: INSULIN (LEVEMIR) 100 UNITS/ML UNITS SQ SCH (22:24)
[2019-02-06] MEDS ORDERED: DEXTROSE 5%-WATER - 50 ML IVPB ONE ×2 (01:36→09:25)
[2019-02-06] MEDS ORDERED: ceFAZolin SODIUM 1 GM VIAL ONE ×2 (01:36→09:25)
[2019-02-06] MEDS: CEFAZOLIN 1 GM in DEXTROSE 5%-WATER - 50 ML IVPB SCH ×2 (03:00→09:30)
[2019-02-06 05:42] LABS: URINE TOTAL VOLUME 1625 mL
[2019-02-06] MEDS: INSULIN SLIDING SCALE (NOVOLOG) 1 VIAL SQ SCH ×2 (06:06→12:59)
[2019-02-06] MEDS: HEPARIN NA (PORCINE) 5,000 UNITS/ML 1ML VIAL SQ SCH ×2 (06:57→13:56)
[2019-02-06] MEDS ORDERED: PT OWN MED DRAWER 7, Y5N ONE (09:25)
[2019-02-06] MEDS ORDERED: ACETAMINOPHEN 325 MG TABLET (FP) PO ONE (09:29)
[2019-02-06] MEDS: ASPIRIN COATED 81 MG TABLET.EC PO SCH (09:30)
[2019-02-06] MEDS: LOSARTAN POTASSIUM 50 MG TABLET (FP) PO SCH (09:30)
[2019-02-06] MEDS ORDERED: ACETAMINOPHEN 325 MG TABLET (FP) ONE (09:35)
[2019-02-06] MEDS ORDERED: CHLORTHALIDONE 25 MG TABLET PO SCH (10:00)
[2019-02-06] MEDS ORDERED: ALLOPURINOL 100 MG TABLET (FP) PO SCH (10:00)
--- NOTE | 2019-02-06 13:21 | PN ---
Progress Note, Physician History of Present Illness: Pt seen and examined at bedside. He is awake and alert. He denies fevers or chills. - Current Medication List Current Medications: Active Medications Allopurinol (Zyloprim -) 100 mg PO DAILY [facility] Last Admin: 02/06/19 09:30 Dose: 100 mg Aspirin (Ecotrin -) 81 mg PO DAILY [facility] Last Admin: 02/06/19 09:30 Dose: 81 mg Atorvastatin Calcium (Lipitor -) 20 mg PO HS [facility] Last Admin: 02/05/19 22:24 Dose: 20 mg Heparin Sodium (Porcine) (Heparin -) 5,000 unit SQ TID [facility] Last Admin: 02/06/19 06:57 Dose: 5,000 unit Cefazolin Sodium 1 gm/ (Dextrose) 50 mls @ 100 mls/hr IVPB Q8H-IV [facility] Last Admin: 02/06/19 09:30 Dose: 100 mls/hr Insulin Aspart (Novolog Vial Sliding Scale -) [address] [facility]; Protocol Last Admin: 02/06/19 12:59 Dose: Not Given Insulin Detemir (Levemir Vial) 50 units SQ [facility] Losartan Potassium (Cozaar -) 50 mg PO DAILY [facility] Last Admin: 02/06/19 09:30 Dose: 50 mg - Objective Vital Signs: Vital Signs Temperature 98.2 F 02/06/19 09:44 Pulse Rate 61 02/06/19 09:44 Respiratory Rate 18 02/06/19 09:44 Blood Pressure 173/77 H 02/06/19 09:44 O2 Sat by Pulse Oximetry (%) 100 02/05/19 22:00 Constitutional: Yes: Calm Eyes: Yes: Conjunctiva Clear HENT: Yes: Atraumatic Neck: Yes: Supple Cardiovascular: Yes: S1, S2 Respiratory: Yes: CTA Bilaterally Gastrointestinal: Yes: Soft Genitourinary: Yes: WNL Musculoskeletal: Yes: WNL Edema: No Neurological: Yes: Oriented Psychiatric: Yes: Oriented Labs: CBC, BMP 02/04/19 06:04 02/05/19 08:16 INR, PTT INR 1.03 (0.83-1.09) 02/04/19 06:04 Problem List - Problems (1) Cellulitis of right leg Code(s): L03.115 - CELLULITIS OF RIGHT LOWER LIMB (2) Diabetes Code(s): E11.9 - TYPE 2 DIABETES MELLITUS WITHOUT COMPLICATIONS (3) Hyperglycemia Code(s): R73.9 - HYPERGLYCEMIA, UNSPECIFIED (4) Renal insufficiency Code(s): N28.9 - DISORDER OF KIDNEY AND URETER, UNSPECIFIED Assessment/Plan Current Medications Generic Name Dose Route Start Last Admin Trade Name Freq PRN Reason Stop Dose Admin Allopurinol 100 mg 02/06/19 10:00 02/06/19 09:30 Zyloprim - PO 100 mg DAILY [facility]ASSIE Administration Aspirin 81 mg 02/04/19 10:00 02/06/19 09:30 Ecotrin - PO 81 mg DAILY KASSIE Administration Atorvastatin Calcium 20 mg 02/03/19 22:00 02/05/19 22:24 Lipitor - PO 20 mg HS KASSIE Administration Heparin Sodium (Porcine) 5,000 unit 02/05/19 14:00 02/06/19 06:57 Heparin - SQ 5,000 unit TID KASSIE Administration Cefazolin Sodium 1 gm/ 50 mls @ 100 mls/hr 02/04/19 18:00 02/06/19 09:30 Dextrose IVPB 100 mls/hr Q8H-IV [facility]ASSIE Administration Insulin Aspart 1 vial 02/04/19 06:00 02/06/19 12:59 Novolog Vial Sliding Scale - SQ Not Given ACHS [facility] Protocol Insulin Detemir 50 units 02/06/19 22:00 Levemir Vial SQ HS KASSIE Losartan Potassium 50 mg 02/05/19 11:45 02/06/19 09:30 Cozaar - PO 50 mg DAILY [facility]ASSIE Administration Impression 1. CKD 2. HTN 3. DM 4. cellultiis Plan - restart coreg - cont losartan - monitor bp - arb should help with proteinuria - renal dose meds - avoid nephrotoxins - outpt follow up - will follow PRN
[2019-02-06] MEDS ORDERED: CARVEDILOL 12.5 MG TABLET (FP) PO SCH (13:30)
--- NOTE | 2019-02-06 13:33 | PN ---
Progress Note (short form) - Note Progress Note: no complaints much less swelling of the leg! Vital Signs Period Temp Pulse Resp BP Sys/Bell Pulse Ox Last 24 Hr 98.0 F-98.6 F 60-94 16-20 130-173/60-79 100-100 cor-rrr lungs clear abd soft,nt ext - erythema, edema resolving CBC, BMP 02/04/19 06:04 02/05/19 08:16 a/p cellulitis- erythema improving-switch to po keflex 500 tid for 7 days d/w resident DM- per primary team Problem List - Problems (1) Cellulitis of right leg Code(s): L03.115 - CELLULITIS OF RIGHT LOWER LIMB (2) Diabetes Code(s): E11.9 - TYPE 2 DIABETES MELLITUS WITHOUT COMPLICATIONS (3) Renal insufficiency Code(s): N28.9 - DISORDER OF KIDNEY AND URETER, UNSPECIFIED
[2019-02-06 14:52] VITALS: BP 157/80; PULSE 60; TEMP 98
--- NOTE | 2019-02-06 17:35 | DS ---
Physical Exam: SUBJECTIVE: Patient seen and examined at bedside. With improvement in RLE; decreased erythema and edema. In good spirits, ready to go home. OBJECTIVE: Vital Signs Period Temp Pulse Resp BP Sys/Bell Pulse Ox Last 24 Hr 98 F-98.6 F 60-94 16-20 130-173/60-80 96-100 02/03/19 02/04/19 02/04/19 13:15 10:00 20:23 Blood Pressure 130/53 L 161/69 159/74 02/04/19 02/05/19 02/05/19 22:38 07:26 09:04 Blood Pressure 140/80 122/60 159/79 02/05/19 02/05/19 02/05/19 09:07 13:47 23:21 Blood Pressure 157/75 157/75 172/79 H 02/06/19 02/06/19 02/06/19 05:36 09:44 14:30 Blood Pressure 130/60 173/77 H 157/80 Physical Examination general: resting comfortably, sitting up in room HEENT: NCAT, PERRLA neck: supple cardio: S1, S2, RRR. no r/m/g pulm: CTA b/l. no accessory m usage abdomen: +obese, nontender, nondistended LE: 2+ pulses, mild erythema and edema RLE. 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 grossly intact LABS Laboratory Results - last 24 hr 02/05/19 02/05/19 02/06/19 22:13 23:03 02:46 POC Glucometer 155 198 91 Urine Collection Time Urine Total Volume Ur Total Protein 12 Hr 02/06/19 02/06/19 02/06/19 04:30 05:47 16:01 POC Glucometer 67 147 Urine Collection Time 24 Urine Total Volume 1625 Ur Total Protein 12 Hr 02/03/19 02/04/19 02/05/19 14:05 06:04 08:16 WBC 6.7 8.2 Hgb 11.9 11.8 Hct 36.4 35.1 L Plt Count 152 139 ESR 50 H 02/04/19 06:04 PT with INR 12.10 INR 1.03 PTT (Actin FS) 28.7 02/03/19 02/03/19 02/04/19 13:55 23:05 06:04 Sodium 139 141 Potassium 4.4 3.6 Chloride 108 H 110 H Carbon Dioxide 25 28 Anion Gap BUN 34.9 H 32.2 H Creatinine 1.9 H 1.8 H Est GFR (CKD-EPI)AfAm 41.65 44.46 POC Glucometer 277 Random Glucose 331 H 163 H Calcium 8.4 L 7.8 L AST 49 H 29 ALT 21 19 Alkaline Phosphatase C-Reactive Protein B-Natriuretic Peptide 1514.6 H Total Protein 6.2 L 5.9 L Albumin 3.0 L 2.9 L 02/05/19 08:16 Sodium 144 Potassium 3.8 Chloride 109 H Carbon Dioxide 27 Anion Gap 8 BUN 31.9 H Creatinine 1.7 H Est GFR (CKD-EPI)AfAm POC Glucometer Random Glucose 58 L Calcium 8.4 L AST 41 H ALT 27 Alkaline Phosphatase 76 C-Reactive Protein 0.6 H B-Natriuretic Peptide Total Protein 6.5 Albumin 3.1 L Imaging 02/03 CXR: some linear scarring or atelectasis at the left base. no acute changes 02/03 knee XR: no sign of fracture or subluxation amd no sign of blastic or lytic changes. there are vascular calcifications. there may b e atiny loose body. an exostosis off of the medial proximal tibia is noted 02/04 CT LE: no evidence of fracture, dislocation, joint effusion or acute bone or joint abnormalities, edematous changes within the subcutaneous tissues aobut both knees and proximal calves, R>>L 02/05 duplex art: mild to moderate atherosclerotic dz without evidence of hemodynamically significant stenosis or occlusion. HOSPITAL COURSE: Date of Admission:02/03/19 Date of Discharge: 02/06/19 Admission diagnosis: RLE cellulitis 68 y/o M with a significant past medical history of IDDM, HTN, CKD, who presented to [facility] due to right knee swelling and pain. Pt endorsed that 1 week prior, he fell on his right knee. Shortly after the injury, he noticed swelling and erythema around the area. Pt tried to apply topical bacitracin to the area with little relief. No other sx. Pt admitted for RLE cellulitis and was managed accordingly: #RLE cellulitis 2/2 mechanical injury -pt was on cefazolin for IV abx. was changed to keflex 500mg TID for PO course on d/c 4 additional days -elevation ESR. CRP WNL -c/w BGM tight control, to aid in wound healing -f/u gonorrhea/chlymidia testing - pending. less likely reactive/septic jt -arterial duplex (-) for acute abmormality #IDDM -c/w levemir 55u sq d -BGM, ISS ACHS #HTN -will hold other anti-HTN for now -on coreg, hydralazine, chlorthalidone, losartan at home -will restart losartan per nephro recs. 1/2 dose, 50mg qd however sent home on home dose #CKD -to f/u 12 hr urine testing -to f/u with nephro on d/c #HLD -c/w lipitor #gout -c/w allopurinol Minutes to complete discharge: 49 Discharge Summary Problems reviewed: Yes Reason For Visit: CELLULITIS OF RIGHT LOWER EXTREMITY Current Active Problems Cellulitis of right leg (Acute) Hyperglycemia (Acute) Diabetes (Chronic) Renal insufficiency (Chronic) Condition: Fair - Instructions Diet, Activity, Other Instructions: You were in the hospital because you had a skin infection of your right leg called cellulitis. This condition can cause redness and swelling in your leg. You were treated with IV antibiotics and improved. You are being sent home. Medications You are being started on the following antibiotic to take on discharge: -Please take keflex 500mg (1 pill) three times a day for the next 4 days, starting tomorrow. -Continue with your home dose of losartan 100mg daily. -You may resume your home medications. Testing While you were in the hospital, you had your blood flow in the arteries in your leg checked. Your result was normal. You will need outpatient pulmonary function tests with a lung doctor, and a sleep study to check for obstructive sleep apnea. You will need to complete 12hr urine testing that you will discuss with the kidney doctor. Care Please continue to monitor your blood sugars. This will help your overall health and help your infection clear. Follow up: -Please follow with Dr. Eckert, your primary care doctor for your diabetes management and general primary follow up - this upcoming week. -You should also follow up with a kidney doctor, Dr. Boykin - in 1 week. -You will need to see Dr. Arriola, a lung doctor to have pulmonary function testing done and a sleep study to check for obstructive sleep apnea. Please see him this week. Referrals: Zafar Eckert MD [Primary Care Provider] - 1 Week Kashif Arriola MD [Staff Physician] - 1 Week Nile Boykin MD [Staff Physician] - 1 Week Disposition: HOME - Home Medications Comprehensive Discharge Medication List: Ambulatory Orders Allopurinol [Zyloprim -] 100 mg PO DAILY 02/03/19 Aspirin [Aspirin EC] 81 mg PO DAILY 02/03/19 Atorvastatin Ca [Lipitor] 20 mg PO HS 02/03/19 Carvedilol 25 mg PO BID 02/03/19 Chlorthalidone 25 mg PO DAILY 02/03/19 Hydralazine HCl 50 mg PO TID 02/03/19 Insulin (Levemir) [Levemir Vial] 55 unit SQ DAILY 02/03/19 Sildenafil Citrate [Viagra] 50 mg PO DAILY PRN 02/05/19 Cephalexin [Keflex] 500 mg PO TID #12 capsule 02/06/19 Losartan Potassium 100 mg PO DAILY #30 tablet 02/06/19 This patient is new to me today: No Emergency Visit: No Critical Care patient: No - Discharge Referral Referred to [facility] Med [facility] No ATTENDING PHYSICIAN STATEMENT I saw and evaluated the patient. I reviewed the resident's note and discussed the case with the resident. I agree with the resident's findings and plan as documented. SUBJECTIVE: OBJECTIVE: ASSESSMENT AND PLAN:
[2019-02-06] MEDS ORDERED: INSULIN (LEVEMIR) 100 UNITS/ML UNITS SQ SCH (22:00)
== END 2019-02-06 17:00 | disposition home or self-care (01) | DRG 603 ==
LOC: JER 12:50 → JERBED 15:55 → J6S 02-04 18:36 → JERBED 02-04 18:57 → J6S 02-04 19:00
PROVIDERS: ADMIT Internal Medicine; ATTEND Internal Medicine
DX: L03.115 Cellulitis of right lower limb (principal); N18.4 Chronic kidney disease, stage 4 (severe); J98.11 Atelectasis; S80.211A Abrasion, right knee, initial encounter; Z79.4 Long term (current) use of insulin; E11.22 Type 2 diabetes mellitus with diabetic chronic kidney disease; I12.9 Hypertensive chronic kidney disease with stage 1 through stage 4 chronic kidney disease, or unspecified chronic kidney disease; M10.9 Gout, unspecified; G47.33 Obstructive sleep apnea (adult) (pediatric); W01.0XXA Fall on same level from slipping, tripping and stumbling without subsequent striking against object, initial encounter; Y93.89 Activity, other specified; Y92.89 Other specified places as the place of occurrence of the external cause; Y99.8 Other external cause status
CPT/HCPCS: 36415; 71045-TC-FY; 73562-TC-RT-FY; 73700-TC-RT; 80053; 81003; 82570; 82962; 83735; 83880; 84100; 84156; 85025; 85610; 85651; 85730; 86140; 87491; 87591; 93005; 93010; 93306-TC; 93926-TC; 93971-TC; 99285-25; J0131; J1644; J7030

== ENCOUNTER 2019-03-12 12:58 | Emergency (ER) | payer OTHER ==
[2019-03-12 13:04] VITALS: BP 131/50; PULSE 60; TEMP 97.9; BMI 32.2
--- NOTE | 2019-03-12 13:05 | PDOC ---
Rapid Medical Evaluation Chief Complaint: Urinary Problem Time Seen by Provider: 03/12/19 13:03 Medical Evaluation: Allergies Allergy/AdvReac Type Severity Reaction Status Date / Time No Known Allergies Allergy Verified 02/03/19 13:19 03/12/19 13:04 I have performed a brief in-person evaluation of this patient. The patient presents with a chief complaint of: h/o DM presennting with urinary frequency and dysuria since today. Denies F/C/N/V Pertinent physical exam findings: a&O x 3 in NAD I have ordered the following: UA, Ucx The patient will proceed to the ED for further evaluation. Discharge Disposition - Diagnosis Dysuria - Discharge Dispostion Condition at time of disposition: Stable - Referrals - Patient Instructions - Post Discharge Activity
[2019-03-12 14:16] LABS: EPI CELLS 1.2 /HPF (0-5/HPF); HYALINE CASTS 6 /lpf (0-8); PH,URINE 7.5 (5.0-8.0); URINE APPEARANCE CLOUDY; URINE BACTERIA >9000 /hpf (NEGATIVE); URINE BILIRUBIN NEGATIVE (NEGATIVE); URINE COLOR YELLOW; URINE GLUCOSE (UA) 1+ (NEGATIVE); URINE KETONE NEGATIVE (NEGATIVE); URINE LEUK ESTERASE 1+ (NEGATIVE); URINE NITRITE NEGATIVE (NEGATIVE); URINE PROTEIN 3+ (NEGATIVE); URINE RBC 2 /hpf (0-4); URINE WBC 131 /hpf (0-5)
--- NOTE | 2019-03-12 15:43 | PDOC ---
History of Present Illness - General Chief Complaint: Urinary Problem Stated Complaint: URINARY PROBLEM Time Seen by Provider: 03/12/19 13:03 History Source: Patient Exam Limitations: No Limitations - History of Present Illness Initial Comments: 03/12/19 15:37 69-year-old male history of diabetes, hypertension presents complaining of urinary frequency and dysuria since this morning. Denies penile discharge, testicular pain, rectal pain, back pain, fever, chills, nausea, vomiting, abdominal pain or any other complaints. Reports unprotected sex with female partner for the past 7 months. ROS: GENERAL/CONSTITUTIONAL: No fever, chills, weakness, dizziness HEAD, EYES, EARS, NOSE AND THROAT: No changes in vision, No ear pain or discharge, No sore throat CARDIOVASCULAR: No chest pain RESPIRATORY: No shortness of breath or cough GASTROINTESTINAL: No pain, nausea, vomiting, diarrhea or constipation GENITOURINARY: Dysuria, urinary frequency MUSCULOSKELETAL: No neck or back pain SKIN: No rash NEUROLOGIC: No headache, vertigo, loss of consciousness, or loss of sensation PE: GENERAL: well-appearing, NAD HEAD: NCAT EYES: Pupils equal, round and reactive to light, sclera anicteric, conjunctiva clear ENT: pharynx: no erythema, no exudate, uvula midline NECK: supple CHEST: nontender RESP: clear, no w/r/r CARDIO: rrr, no m/g/r ABD: +BS, soft, nondistended, minimal suprapubic tenderness to palpation : Circumcised male, no penile discharge noted, no testicular tenderness BACK: no midline spinal ttp, no CVAT EXTREMITIES: Normal range of motion, no edema NEUROLOGICAL: Normal speech, normal gait SKIN: Warm, Dry Past History - Past Medical History Allergies/Adverse Reactions: Allergies Allergy/AdvReac Type Severity Reaction Status Date / Time No Known Allergies Allergy Verified 03/12/19 13:04 Home Medications: Ambulatory Orders Allopurinol [Zyloprim -] 100 mg PO DAILY 02/03/19 Aspirin [Aspirin EC] 81 mg PO DAILY 02/03/19 Atorvastatin Ca [Lipitor] 20 mg PO HS 02/03/19 Carvedilol 25 mg PO BID 02/03/19 Chlorthalidone 25 mg PO DAILY 02/03/19 Hydralazine HCl 50 mg PO TID 02/03/19 Insulin (Levemir) [Levemir Vial] 55 unit SQ DAILY 02/03/19 Sildenafil Citrate [Viagra] 50 mg PO DAILY PRN 02/05/19 Cephalexin [Keflex] 500 mg PO TID #12 capsule 02/06/19 Losartan Potassium 100 mg PO DAILY #30 tablet 02/06/19 Sulfamethoxazole/Trimethoprim [Bactrim Ds -] 1 tab PO DAILY 10 Days #20 tablet 03/12/19 COPD: No Diabetes: Yes HTN: Yes - Psycho Social/Smoking Cessation Hx Smoking History: Never smoked Have you smoked in the past 12 months: No Hx Alcohol Use: No Drug/Substance Use Hx: No Substance Use Type: None Hx Substance Use Treatment: No *Physical Exam - Vital Signs Last Vital Signs Temp Pulse Resp BP Pulse Ox 97.9 F 60 18 131/50 L 98 03/12/19 13:00 03/12/19 13:00 03/12/19 13:00 03/12/19 13:00 03/12/19 13:00 ED Treatment Course - ADDITIONAL ORDERS Additional order review: Laboratory Results 03/12/19 13:50 Urine Color Yellow Urine Appearance Cloudy Urine pH 7.5 D Ur Specific [place] 1.020 Urine Protein 3+ H Urine Glucose (UA) 1+ H Urine Ketones Negative Urine Blood Negative Urine Nitrite Negative Urine Bilirubin Negative Urine Urobilinogen 1.0 Ur Leukocyte Esterase 1+ H Urine WBC (Auto) 131 Urine RBC (Auto) 2 Urine Casts (Auto) 6 U Epithel Cells (Auto) 1.2 Urine Bacteria (Auto) >9000 Medical Decision Making - Medical Decision Making 03/12/19 15:41 69-year-old male with diabetes and hypertension complaining of urinary frequency and dysuria since this morning. UA: +1 leukocytes, greater than 9000 urine bacteria, 3+ protein Urine culture and GC chlamydia test pending Patient declines GC chlamydia treatment at this time, he will wait for results We will treat with Bactrim DS bid x 10 days for a UTI Patient understands he needs to follow-up with PMD and a urologist 03/12/19 15:46 Discharge - Discharge Information Problems reviewed: Yes Clinical Impression/Diagnosis: Dysuria Condition: Stable - Admission No - Additional Discharge Information Prescriptions: Sulfamethoxazole/Trimethoprim [Bactrim Ds -] 1 tab PO DAILY 10 Days #20 tablet - Follow up/Referral - Patient Discharge Instructions Additional Instructions: Take Bactrim DS 1 tab twice a day for 10 days Follow-up with your doctor within 1 week Return to ER if fever, chills, nausea, back pain, vomiting, or worsening symptoms - Post Discharge Activity
== END 2019-03-12 15:54 | disposition home or self-care (01) ==
LOC: JERFT 12:58
DX: N39.0 Urinary tract infection, site not specified (principal); B96.89 Other specified bacterial agents as the cause of diseases classified elsewhere; I10 Essential (primary) hypertension; E11.9 Type 2 diabetes mellitus without complications; Z79.4 Long term (current) use of insulin; Z79.82 Long term (current) use of aspirin
CPT/HCPCS: 36415; 81003; 87086; 87186; 87491; 87591; 99282-25

== ENCOUNTER 2023-02-07 13:54 | Emergency (ER) | payer OTHER ==
[2023-02-07 14:10] VITALS: TEMP 97.8; BMI 31.0
[2023-02-07] MEDS ORDERED: ACETAMINOPHEN 1000 MG/100 ML BAG IVPB ONE (15:10)
[2023-02-07] MEDS ORDERED: ACETAMINOPHEN INJECTION 100 ML IVPB ONE (15:15)
[2023-02-07 15:45] LABS: HEMATOCRIT 34.1 % (35.4-49); HEMOGLOBIN 11.5 GM/dL (11.7-16.9); MCHC 33.6 g/dl (32.0-35.9); MEAN CELL VOLUME 86.2 fl (80-96); MEAN PLT VOLUME 9.1 fl (7.5-11.1); PLATELET COUNT 138 10^3/uL (134-434); RBC 3.95 M/mm3 (4.00-5.60); RDW 14.2 % (11.9-15.9); WHITE BLOOD COUNT 6.2 K/mm3 (4.0-10.0)
[2023-02-07 15:58] LABS: POTASSIUM 4.3 mmol/L (3.5-5.1)
[2023-02-07 16:00] LABS: CALCIUM 8.1 mg/dL (8.5-10.1); INR 1.02 (0.83-1.09); PROTHROMBIN TIME (PATIENT) 11.8 SEC (9.7-13.0)
[2023-02-07 16:01] LABS: ALBUMIN 2.7 g/dl (3.4-5.0); BLOOD UREA NITROGEN 53.3 mg/dL (7-18)
[2023-02-07 16:03] LABS: ACTIVATED PTT 26.7 SECONDS (25.2-36.5)
[2023-02-07 16:04] LABS: CREATININE 3.3 mg/dL (0.55-1.3)
[2023-02-07 16:05] LABS: BILIRUBIN,TOTAL 0.3 mg/dL (0.2-1); TOT PROT 5.8 g/dl (6.4-8.2)
[2023-02-07 16:29] LABS: ANISOCYTOSIS 0; MACROCYTOSIS 0; OVALOCYTE 1+
[2023-02-07 17:54] VITALS: BP 148/45; PULSE 59; RESP 16
[2023-02-07] MEDS ORDERED: CEPHALEXIN MONOHYDRATE 500 MG CAPSULE (UD) PO ONE (18:27)
[2023-02-07] MEDS ORDERED: CEPHALEXIN MONOHYDRATE 500 MG CAPSULE (UD) ONE (18:34)
== END 2023-02-07 18:44 | disposition home or self-care (01) ==
LOC: JER 13:54
DX: R22.41 Localized swelling, mass and lump, right lower limb (principal); L03.115 Cellulitis of right lower limb; E11.9 Type 2 diabetes mellitus without complications; N19 Unspecified kidney failure
CPT/HCPCS: 36415; 80053; 85025; 85610; 85730; 93971-TC; 99284-25